=== PATIENT | female | born 1945 | race Caucasian/White ===

== ENCOUNTER 2016-11-03 13:09 | Emergency (ER) | payer MEDICARE ==
[2016-11-03] MEDS ORDERED: Ondansetron ODT 4 MG TAB ONE (13:32)
[2016-11-03 15:22] LABS: #Basophils 0.2 thou/uL (0.0-0.2); #Lymphocytes 1.2 thou/uL (1.20-3.40); #Neutrophils 3.4 thou/uL (1.40-6.50); %Basophils 2.6 % (0.0-1.0); %Eosinophils 0.4 % (0.0-10.0); %Lymphocytes 21.2 % (21.0-51.0); %Monocytes 17.9 % (0.0-10.0); Macrocytosis MARKED = >30 cells (100X) (0-5/hpf); Mean Platelet Volume 8.1 fL (7.4-10.4); Red Blood Cell (RBC) Count 3.92 mill/uL (4.20-5.40); White Blood Cell (WBC) Count 5.9 thou/uL (4.8-10.8)
[2016-11-03 15:23] LABS: ALT (SGPT) 12 U/L (0-55); AST (SGOT) 24 U/L (5-34); Alkaline Phosphatase 64 U/L (40-150); Anion Gap 16 mmol/L (10-20); BUN (Urea Nitrogen) 17 mg/dL (9.8-20.1); Bilirubin, Total 0.5 mg/dL (0.2-1.2); Calc. Creatinine Clearance 0 mL/min (70-130); Calcium 8.9 mg/dL (7.8-10.44); Carbon Dioxide 15 mmol/L (23-31); Chloride 97 mmol/L (98-107); Estimated GFR-MDRD 81; Protein, Total 6.5 g/dL (5.8-8.1)
[2016-11-03] MEDS ORDERED: Fentanyl 100 MCG/2 ML VIAL ONE (15:23)
--- NOTE | 2016-11-03 17:24 | ERRECORD ---
[facility]13:13 EPIE) MERGE: Ambulance Tue Nov 03, 2016 13:02. HPI NAUSEA/VOMITING/DIARRHEA (15:35 MPUR) CHIEF COMPLAINT: Patient presents for evaluation of nausea, Patient presents for evaluation of vomiting, Patient presents for evaluation of dehydration. HISTORIAN: History provided by patient, 71 yo who had a pacemaker placer 1 week ago. Since then has had N& V with persistence. NO primary. Evidently was on Hospice in the past but is no longer. LOCATION FEMALE: Symptoms are generalized. TIME COURSE: Gradual onset of symptoms, Symptoms are worsening. ASSOCIATED WITH FEMALE: No associated constipation, No associated diarrhea, No associated weight change. EXACERBATED BY: Patient's condition exacerbated by nothing. RELIEVED BY: Patient's condition relieved by nothing. ROS (15:39 MPUR) CONSTITUTIONAL: Historian denies chills, Historian denies fever, Historian denies malaise, Historian denies weakness. CO chronic pain. EYES: Historian denies eye redness, Historian denies eye discharge. ENT: Historian denies epistaxis, Historian denies otalgia, Historian denies rhinorrhea, Historian denies sore throat. CARDIOVASCULAR: Historian denies chest pain except for pain around her new pacemaker site. RESPIRATORY: Historian denies cough, Historian denies shortness of breath. GI: Historian denies abdominal pain, Historian denies diarrhea with last BM thin am, normal,. GENITOURINARY FEMALE: Historian denies dysuria, Historian denies frequency, Historian denies hematuria, Historian denies urgency,. MUSCULOSKELETAL: Historian denies neck pain. Has chronic back pain. SKIN: Historian denies cellulitis, Historian denies rash. NEUROLOGIC: Historian denies dizziness, Historian denies headache. ENDOCRINE: Historian denies polydipsia, Historian denies polyuria. PAST MEDICAL HISTORY (13:15 EPIE) MEDICAL HISTORY: Flu vaccine not up to date, Pneumococcal vaccine not up to date, Past medical history includes gastrointestinal disease, diverticulitis, Past medical history includes history of hypertension. Notes: seizures, , Past medical history includes pulmonary disease, chronic obstructive pulmonary &a-1R&a+25V*p+0X*[id number]*c202B*c15G*c2P*p-0X&a-25V&a+1R Name: Nelli Monet : 1945 F71 MedRec: [id number] AcctNum: [id number] Prepared: WedNov 03, 2016 18:40 by Interface Page 1 of 3 pMD [facility] EMERGENCY RECORD disease. CHRONIC BACK PAIN, recently dx with cardiomyopathy. FEMALE SURGICAL HISTORY: bilateral cataract. bilateral trigger fingers, Surgical history of section, Surgical history of hysterectomy. Surgical history of section, Surgical history of hysterectomy, Surgical history of orthopedic surgery, neck. PSYCHIATRIC HISTORY: Psychiatric history includes, anxiety. SOCIAL HISTORY: Patient denies alcohol use, Patient denies drug use, Patient currently uses tobacco, smokes cigarettes, Patient smokes ocassionally. KNOWN ALLERGIES azithromycin (Unconfirmed) Penicillins CURRENT MEDICATIONS No recorded medications VITAL SIGNS VITAL SIGNS: BP: 175/75, Pulse: 61, Resp: 20, Pain: 6, O2 sat: 96 on Room Air, Time: 11/03/2016 13:13. (13:13 EPIE) BP: 142/66, Pulse: 60, Resp: 20, Temp: 97.5 (Oral), Pain: 6, O2 sat: 98 on Room Air, Time: 11/03/2016 15:00. (15:00 JPAR) BP: 174/85, Pulse: 60, Resp: 19, Pain: 7, O2 sat: 98, Time: 11/03/2016 15:15. (15:15 JPAR) BP: 151/62, Pulse: 60, Resp: 16, Pain: 4, O2 sat: 97, Time: 11/03/2016 16:08. (16:08 JPAR) BP: 149/56, Pulse: 60, Resp: 16 (Non-Labored), O2 sat: 97 on Room Air, Time: 11/03/2016 16:30. (16:30 EPIE) BP: 130/50, Pulse: 60, Resp: 17, Pain: 2, O2 sat: 97, Time: 11/03/2016 17:07. (17:07 JPAR) PHYSICAL EXAM (15:38 MPUR) CONSTITUTIONAL: Vital signs reviewed, Patient alert and oriented to person, place and time. Cachetic. HEAD: Head exam included findings of head atraumatic, normocephalic. EYES: Pupils equally round and reactive to light, Extraocular muscles intact, Conjunctiva normal. ENT: Ear exam normal, Nose exam normal, Pharynx exam normal. NECK: Neck exam included findings of normal range of motion, Trachea midline, no jugular venous distention. RESPIRATORY CHEST: Respiratory exam included findings of no respiratory distress, Breath sounds clear, No wheezing, No rales, No rhonchi. CARDIOVASCULAR: Cardiovascular exam included findings of heart rate regular rate and rhythm, Heart sounds normal, normal S1, normal S2, no murmurs. &a-1R&a+25V*p+0X*a7322O*c202B*c15G*c2P*p-0X&a-25V&a+1R Name: Nelli Monet : 1945 F71 MedRec: [id number] AcctNum: [id number] Prepared: WedNov 03, 2016 18:40 by Interface Page 2 of 3 pMD [facility] EMERGENCY RECORD ABDOMEN FEMALE: Abdominal exam included findings of abdomen nontender, Bowel sounds normal, Liver normal, Spleen normal, no distension, no mass, no pulsatile masses, no peritoneal signs. BACK: Back exam normal. dark skin on back from heatng pad. UPPER EXTREMITY: Motor strength normal, Sensation intact, Radial pulse normal. LOWER EXTREMITY: Lower extremity exam included findings of inspection normal, Motor strength normal, Posterior tibial pulse normal. NEURO: Neuro exam findings include patient oriented to person, place and time, Speech normal. SKIN: Skin exam included findings of skin warm, dry. MEDICATION ADMINISTRATION SUMMARY Drug Name: fentaNYL (PF) injection, Dose Ordered: 50 mcg, Route: IV Push, Status: Given, Time: 15:24 11/03/2016, Drug Name: *sodium chloride 0.9 % intravenous, Dose Ordered: 500 mL, Route: IV Fluid Infusion, Status: Given, Time: 14:31 11/03/2016, Drug Name: Zofran ODT, Dose Ordered: 4 mg, Route: Sublingual, Status: Given, Time: 13:35 11/03/2016, *Additional information available in notes, Detailed record available in Medication Service section. DOCTOR NOTES TEXT: Elderly female with N & V, hyponatremia, recent pacemaker insertion. Will admit for correction. (15:32 MPUR) D/W: Discussed this case with Dr. Mcclain, the [employer] special education teacher physician, discussed and need for transfer. (15:53 MPUR) PROBLEM LIST No recorded problems DIAGNOSIS (15:34 MPUR) FINAL: PRIMARY: Nausea and vomiting, ADDITIONAL: Hyponatremia. PRESCRIPTION No recorded prescriptions DISPOSITION PATIENT: Disposition Type: Transfer, Disposition: Transfer to [facility]. (15:34 MPUR) Patient left the department. (17:18 JPAR) Fuller: LEBRON=AUSTIN Joel, Leesa BROWNE=AUSTIN Alvarez, Josh MPUR=MD Maame, Lc &a-1R&a+25V*p+0X*l7141Y*c202B*c15G*c2P*p-0X&a-25V&a+1R Name: Nelli Monet : 1945 F71 MedRec: [id number] AcctNum: [id number] Prepared: Cristopher Nov 03, 2016 18:40 by Interface Page 3 of 3 pMD [facility]TDD
--- NOTE | 2016-11-03 17:30 | PICIS ---
[facility] EMERGENCY RECORD ADMIN MERGE: Ambulance WedNov 03, 2016 13:02. (13:13 EPIE) TRIAGE (WedNov 03, 2016 13:12 EPIE) TRIAGE NOTES: Pt reports nausea and vomiting starting after pacemaker was placed. Pt has no appetite at this time. (WedNov 03, 2016 13:12 EPIE) PATIENT: NAME: Nelli Monet, AGE: 71, GENDER: female, : Wed1945, TIME OF GREET: WedNov 03, 2016 13:10, PREFERRED LANGUAGE: Angolan, ETHNICITY: Not or , ECODE BILLING MAP: [facility], SSN: [id number], Zip Code: [address], KG WEIGHT: 46.27, PHONE: , , , PERSON ID: [id number], PCP: none. (WedNov 03, 2016 13:12 EPIE) COMPLAINT: N/V Pacemaker placed 10/27/16. (WedNov 03, 2016 13:12 EPIE) ADMISSION: URGENCY: 3 Urgent, ADMISSION SOURCE: Home, TRANSPORT: AMBULANCE - [facility], BED: TRIAGE. (WedNov 03, 2016 13:12 EPIE) TRIAGE SCREENING: Patient denies suicidal ideation, Patient denies presence of domestic violence. (13:15 EPIE) TREATMENTS IN PROGRESS: Treatments given Prehospital: 4mg zofran IM SAP SD ANALYST. (13:15 EPIE) PROVIDERS: TRIAGE NURSE: Leesa Joel RN. (WedNov 03, 2016 13:12 EPIE) VITAL SIGNS: BP 175/75, Pulse 61, Resp 20, Pain 6, O2 Sat 96, on Room Air, Time 11/03/2016 13:13. (13:13 EPIE) PREVIOUS VISIT ALLERGIES: Penicillins. (WedNov 03, 2016 13:12 EPIE) Penicillins. (13:15 EPIE) KNOWN ALLERGIES azithromycin (Unconfirmed) Penicillins CURRENT MEDICATIONS No recorded medications VITAL SIGNS VITAL SIGNS: BP: 175/75, Pulse: 61, Resp: 20, Pain: 6, O2 sat: 96 on Room Air, Time: 11/03/2016 13:13. (13:13 EPIE) BP: 142/66, Pulse: 60, Resp: 20, Temp: 97.5 (Oral), Pain: 6, O2 sat: 98 on Room Air, Time: 11/03/2016 15:00. (15:00 JPAR) BP: 174/85, Pulse: 60, Resp: 19, Pain: 7, O2 sat: 98, Time: 11/03/2016 15:15. (15:15 JPAR) BP: 151/62, Pulse: 60, Resp: 16, Pain: 4, O2 sat: 97, Time: 11/03/2016 16:08. (16:08 JPAR) BP: 149/56, Pulse: 60, Resp: 16 (Non-Labored), O2 sat: 97 on Room Air, Time: 11/03/2016 16:30. (16:30 EPIE) BP: 130/50, Pulse: 60, Resp: 17, Pain: 2, O2 sat: 97, Time: 11/03/2016 17:07. (17:07 JPAR) &a-1R&a+25V*p+0X*g8201X*c202B*c15G*c2P*p-0X&a-25V&a+1R Name: Nelli Monet : 1945 F71 MedRec: [id number] AcctNum: [id number] Prepared: aashish Nov 03, 2016 18:46 by Interface Page 1 of 9 pMD [facility] EMERGENCY RECORD NURSING ASSESSMENT: ABDOMEN (13:20 JPAR) CONSTITUTIONAL: Patient arrives, via Emergency Medical Services, Gait steady, History obtained from patient, Patient appears, uncomfortable, Patient cooperative, Patient alert, Oriented to person, place and time, Skin warm, Skin dry, Skin normal in color, Patient complains of Nausea 3 full days since wednesday. PAIN: aching pain, cramping pain, to the epigastric region, Onset of pain 3 days, on a scale 0-10 patient rates pain as 6. ABDOMEN: Abdomen assessment findings include abdomen symmetrical, no discolorations, no ecchymosis, no hernia, no incision(s), Lesions, no scars, no striae, no hemorrhoids, Abdomen soft, non-tender, no pulsatile mass, no dullness with percussion, no resonance with percussion, Bowel sounds, hyperactive, Associated with nausea, Associated with vomiting, history of vomiting, Number of times: 8-10 times a day, vomiting clear fluid, no associated diarrhea, no associated constipation, no associated weight change, no associated appetite change. GENITOURINARY FEMALE: no associated urinary complaints. SAFETY: Side rails up, Cart/Stretcher in lowest position, Family at bedside, Call light within reach, Hospital ID band on. NURSING PROCEDURE: EKG CHART (13:34 EPIE) PATIENT IDENTIFIER: Patient actively involved in identification process, Patient's identity verified by patient stating name, Patient's identity verified by patient stating date, Patient's identity verified by hospital ID bracelet, Patient's identity verified by family member. EKG: EKG indicated for Intractable Vomiting 4 days, 12 lead EKG performed on the left chest, first EKG. FOLLOW-UP: After procedure, EKG for interpretation given to Dr. Isabel. SAFETY: Side rails up, Cart/Stretcher in lowest position, Call light within reach, Hospital ID band on. NURSING PROCEDURE: IV (14:45 EPIE) PATIENT IDENITIFIER: Patient actively involved in identification process, Patient's identity verified by patient stating name, Patient's identity verified by hospital ID bracelet. IV SITE 1: IV established, to the right forearm, using a 22 gauge catheter, in three attempts, IV site prepped with chloroprep, Saline lock established, Flushed with normal saline (mls): 10, Notes: IV started by Rita RN 2 attempts by Leesa AVILA. FOLLOW-UP SITE 1: After procedure, no drainage at IV site, After procedure, no swelling at IV site, After procedure, no redness at IV site. &a-1R&a+25V*p+0X*o3049O*c202B*c15G*c2P*p-0X&a-25V&a+1R Name: Nelli Monet : 1945 F71 MedRec: [id number] AcctNum: [id number] Prepared: WedNov 03, 2016 18:46 by Interface Page [address] [facility] EMERGENCY RECORD NURSING PROCEDURE: TRANSFER (17:17 JPAR) TRANSFER: Reason for transfer need for specialized care, Diagnosis: Hyponatremia, [place], Accepting institution: [facility], Accepting physician: Sarahi, Referring physician: Maame, Transported by urgent ambulance, accompanied by emergency medical services personnel, Report called to receiving facility, Lory, Provided opportunity to answer questions, Summary of Care printed, Copy of patient record prepared for receiving facility, Copy of diagnostic studies, Patient consent for transfer signed, Family member contacted, Son- Navneet via Phone. BELONGINGS: Belongings and valuables with patient at time of discharge include:, Belongings remain with patient, Valuables remain with patient. EQUIPMENT WITH PATIENT: Equipment with patient at time of transfer cardiac cath lab manager, Saline lock intact and patent at time of transfer. SAFETY: Side rails up, Cart/Stretcher in lowest position, Call light within reach, Hospital ID band on. ORDER DETAILS Order Name: Beta-Hydroxybutyrate (Ketone), Status: Canceled, Time: 15:35 11/03/2016, User: System, - Ordered for: MD Isabel Marcus, - Entered by: MD Isabel Marcus - Tue Nov 03, 2016 14:49, - Quantity: 1, Order Name: Cardiac Profile w/CKMB & Troponin - I, Status: Canceled, Time: 15:35 11/03/2016, User: System, - Ordered for: MD Isabel Marcus, - Entered by: MD Isabel Marcus - Tue Nov 03, 2016 14:49, - Quantity: 1, Order Name: CBC with Differential, Status: Active, Time: 13:22 11/03/2016, User: KASIE, - Ordered for: MD Isabel Marcus, - Entered by: MD Isabel Marcus - Tue Nov 03, 2016 13:22, - Quantity: 1, Order Name: CK (CPK), Status: Canceled, Time: 15:35 11/03/2016, User: System, - Ordered for: MD Isabel Marcus, - Entered by: MD Isabel Marcus - Tue Nov 03, 2016 14:49, - Quantity: 1, Order Name: Comprehensive Metabolic Panel, Status: Active, Time: 13:22 11/03/2016, User: KASIE, - Ordered for: MD Isabel Marcus, - Entered by: MD Isabel Marcus - Tue Nov 03, 2016 13:22, - Quantity: 1, Order Name: EKG 12 Lead in Emergency Room, Status: Active, Time: 13:22 11/03/2016, User: KASIE, - Ordered for: MD Isabel Marcus, - Entered by: MD Isabel Marcus - Tue Nov 03, 2016 13:22, &a-1R&a+25V*p+0X*e5298L*c202B*c15G*c2P*p-0X&a-25V&a+1R Name: Nelli Monet : 1945 F71 MedRec: [id number] AcctNum: [id number] Prepared: WedNov 03, 2016 18:46 by Interface Page 3 of 9 D [facility] EMERGENCY RECORD - Quantity: 1, Order Name: SALINE LOCK, Status: Done, Time: 15:07 11/03/2016, User: LEBRON, - Ordered for: MD Isabel Marcus, - Entered by: MD Isabel Marcus - Tue Nov 03, 2016 14:49, - Quantity: 1, Order Name: Urinalysis with Microscopic, Status: Active, Time: 14:49 11/03/2016, User: KASIE, - Ordered for: MD Isabel Marcus, - Entered by: MD Isabel Marcus - Tue Nov 03, 2016 14:49, - Quantity: 1. MEDICATION ADMINISTRATION SUMMARY Drug Name: fentaNYL (PF) injection, Dose Ordered: 50 mcg, Route: IV Push, Status: Given, Time: 15:24 11/03/2016, Drug Name: *sodium chloride 0.9 % intravenous, Dose Ordered: 500 mL, Route: IV Fluid Infusion, Status: Given, Time: 14:31 11/03/2016, Drug Name: Zofran ODT, Dose Ordered: 4 mg, Route: Sublingual, Status: Given, Time: 13:35 11/03/2016, *Additional information available in notes, Detailed record available in Medication Service section. MEDICATION SERVICE fentaNYL (PF) injection: Order: fentaNYL (PF) injection (fentanyl citrate/preservative free) - Dose: 50 mcg : IV Push Ordered by: Lc Isabel MD Entered by: Lc Isabel MD WedNov 03, 2016 15:19 , Acknowledged by: Josh Alvarez RN WedNov 03, 2016 15:23 Documented as given by: Josh Alvarez RN WedNov 03, 2016 15:24 Patient, Medication, Dose, Route and Time verified prior to administration. IV SITE #1 IVP, initial medication, Slowly, Awake and alert- acceptable, Connections checked prior to administration, Line traced prior to administration, Catheter placement confirmed via flush prior to administration, IV site without signs or symptoms of infiltration during medication administration, No swelling during administration, No drainage during administration, IV flushed after administration, Correct patient, time, route, dose and medication confirmed prior to administration, Patient advised of actions and side-effects prior to administration, Allergies confirmed and medications reviewed prior to administration, Patient in position of comfort, Side rails up, Cart in lowest position, Call light in reach. sodium chloride 0.9 % intravenous: Order: sodium chloride 0.9 % intravenous (0.9 % sodium chloride) - Dose: 500 mL : IV Fluid Infusion Notes: bolus Ordered by: Lc Isabel MD Entered by: Lc Isabel MD WedNov 03, 2016 14:55 , Acknowledged by: Josh Alvarez RN WedNov 03, 2016 15:16 &a-1R&a+25V*p+0X*r6355F*c202B*c15G*c2P*p-0X&a-25V&a+1R Name: Nelli Monet : 1945 F71 MedRec: [id number] AcctNum: [id number] Prepared: WedNov 03, 2016 18:46 by Interface Page 4 of 9 pMD [facility] EMERGENCY RECORD Documented as given by: Josh Alvarez RN WedNov 03, 2016 14:31 Patient, Medication, Dose, Route and Time verified prior to administration. IV SITE #1 IV fluids established for hydration, IV SITE #1 into right forearm, IV SITE #1 1st bag hung, amount 500ml hung, IV SITE #1 bolus of 500 ml established, via primary tubing, Awake and alert- acceptable, Catheter placement confirmed via flush prior to administration, IV site without signs or symptoms of infiltration during medication administration, No swelling during administration, No drainage during administration, IV flushed after administration, Correct patient, time, route, dose and medication confirmed prior to administration, Patient advised of actions and side-effects prior to administration, Allergies confirmed and medications reviewed prior to administration, Administered by Rita Tucker RN, Patient in position of comfort, Side rails up, Cart in lowest position, Family at bedside, Call light in reach. : Follow Up : _IV SITE #1:_, IV fluid infusion discontinued, on WedNov 03, 2016 15:45, Total fluid hydration time IV site 1 1 hour, 15 minutes, ., Total amount infused: 500ml, IV Line flushed after administration. (15:45 EPIE) Zofran ODT: Order: Zofran ODT (ondansetron) - Dose: 4 mg : Sublingual Ordered by: Lc Isabel MD Entered by: Lc Isabel MD WedNov 03, 2016 13:37 Documented as given by: Leesa Joel RN WedNov 03, 2016 13:35 Patient, Medication, Dose, Route and Time verified prior to administration. Patient appears Awake and alert- acceptable, Correct patient, time, route, dose and medication confirmed prior to administration, Patient advised of actions and side-effects prior to administration, Allergies confirmed and medications reviewed prior to administration, Administered by Leesa AVILA, Patient in position of comfort, Side rails up, Cart in lowest position, Family at bedside, Call light in reach. HPI NAUSEA/VOMITING/DIARRHEA (15:35 MPUR) CHIEF COMPLAINT: Patient presents for evaluation of nausea, Patient presents for evaluation of vomiting, Patient presents for evaluation of dehydration. HISTORIAN: History provided by patient, 71 yo who had a pacemaker placer 1 week ago. Since then has had N& V with persistence. NO primary. Evidently was on Hospice in the past but is no longer. LOCATION FEMALE: Symptoms are generalized. TIME COURSE: Gradual onset of symptoms, Symptoms are worsening. ASSOCIATED WITH FEMALE: No associated constipation, No associated diarrhea, No associated weight change. EXACERBATED BY: Patient's condition exacerbated by nothing. RELIEVED BY: Patient's condition relieved by nothing. ROS (15:39 MPUR) &a-1R&a+25V*p+0X*e8571G*c202B*c15G*c2P*p-0X&a-25V&a+1R Name: Nelli Monet : 1945 F71 MedRec: [id number] AcctNum: [id number] Prepared: Cristopher Nov 03, 2016 18:46 by Interface Page 5 of 9 pMD [facility] EMERGENCY RECORD CONSTITUTIONAL: Historian denies chills, Historian denies fever, Historian denies malaise, Historian denies weakness. CO chronic pain. EYES: Historian denies eye redness, Historian denies eye discharge. ENT: Historian denies epistaxis, Historian denies otalgia, Historian denies rhinorrhea, Historian denies sore throat. CARDIOVASCULAR: Historian denies chest pain except for pain around her new pacemaker site. RESPIRATORY: Historian denies cough, Historian denies shortness of breath. GI: Historian denies abdominal pain, Historian denies diarrhea with last BM thin am, normal,. GENITOURINARY FEMALE: Historian denies dysuria, Historian denies frequency, Historian denies hematuria, Historian denies urgency,. MUSCULOSKELETAL: Historian denies neck pain. Has chronic back pain. SKIN: Historian denies cellulitis, Historian denies rash. NEUROLOGIC: Historian denies dizziness, Historian denies headache. ENDOCRINE: Historian denies polydipsia, Historian denies polyuria. PAST MEDICAL HISTORY (13:15 EPIE) MEDICAL HISTORY: Flu vaccine not up to date, Pneumococcal vaccine not up to date, Past medical history includes gastrointestinal disease, diverticulitis, Past medical history includes history of hypertension. Notes: seizures, , Past medical history includes pulmonary disease, chronic obstructive pulmonary disease. CHRONIC BACK PAIN, recently dx with cardiomyopathy. FEMALE SURGICAL HISTORY: bilateral cataract. bilateral trigger fingers, Surgical history of section, Surgical history of hysterectomy. Surgical history of section, Surgical history of hysterectomy, Surgical history of orthopedic surgery, neck. PSYCHIATRIC HISTORY: Psychiatric history includes, anxiety. SOCIAL HISTORY: Patient denies alcohol use, Patient denies drug use, Patient currently uses tobacco, smokes cigarettes, Patient smokes ocassionally. PHYSICAL EXAM (15:38 MPUR) CONSTITUTIONAL: Vital signs reviewed, Patient alert and oriented to person, place and time. Cachetic. HEAD: Head exam included findings of head atraumatic, normocephalic. EYES: Pupils equally round and reactive to light, Extraocular muscles intact, Conjunctiva normal. &a-1R&a+25V*p+0X*r9612I*c202B*c15G*c2P*p-0X&a-25V&a+1R Name: Nelli Monet : 1945 F71 MedRec: [id number] AcctNum: [id number] Prepared: WedNov 03, 2016 18:46 by Interface Page 6 of 9 pMD [facility] EMERGENCY RECORD ENT: Ear exam normal, Nose exam normal, Pharynx exam normal. NECK: Neck exam included findings of normal range of motion, Trachea midline, no jugular venous distention. RESPIRATORY CHEST: Respiratory exam included findings of no respiratory distress, Breath sounds clear, No wheezing, No rales, No rhonchi. CARDIOVASCULAR: Cardiovascular exam included findings of heart rate regular rate and rhythm, Heart sounds normal, normal S1, normal S2, no murmurs. ABDOMEN FEMALE: Abdominal exam included findings of abdomen nontender, Bowel sounds normal, Liver normal, Spleen normal, no distension, no mass, no pulsatile masses, no peritoneal signs. BACK: Back exam normal. dark skin on back from heatng pad. UPPER EXTREMITY: Motor strength normal, Sensation intact, Radial pulse normal. LOWER EXTREMITY: Lower extremity exam included findings of inspection normal, Motor strength normal, Posterior tibial pulse normal. NEURO: Neuro exam findings include patient oriented to person, place and time, Speech normal. SKIN: Skin exam included findings of skin warm, dry. EVENTS TRANSFER: Triage to Emergency Triage. (WedNov 03, 2016 13:12 EPIE) Emergency Triage to Emergency Room -03. (13:13 EPIE) Removed from Emergency Emergency Room -03. (17:18 JPAR) DOCTOR NOTES TEXT: Elderly female with N & V, hyponatremia, recent pacemaker insertion. Will admit for correction. (15:32 MPUR) D/W: Discussed this case with Dr. Mcclain, the application consultant physician, discussed and need for transfer. (15:53 MPUR) PROBLEM LIST No recorded problems DIAGNOSIS (15:34 MPUR) FINAL: PRIMARY: Nausea and vomiting, ADDITIONAL: Hyponatremia. DISPOSITION PATIENT: Disposition Type: Transfer, Disposition: Transfer to [facility]. (15:34 MPUR) Patient left the department. (17:18 JPAR) PRESCRIPTION No recorded prescriptions &a-1R&a+25V*p+0X*v3702X*c202B*c15G*c2P*p-0X&a-25V&a+1R Name: Nelli Monet : 1945 F71 MedRec: [id number] AcctNum: [id number] Prepared: WedNov 03, 2016 18:46 by Interface Page 7 of 9 pMD [facility] EMERGENCY RECORD IMAGING *MEMORANDUM OF TRANSFER: Image captured from scanner. (17:04 JPAR) CONSENTS: Image captured from scanner. (17:05 JPAR) *SUPPLY CHARGE SHEET: Image captured from scanner. (17:55 JPAR) TRANSFER WORKSHEET: Image captured from scanner. (17:56 JPAR) *EKG: Image captured from scanner. (17:57 JPAR) ADMIN DIGITAL SIGNATURE: AUSTIN Alvarez, Josh. (17:18 JPAR) MD Maame, Lc. (18:33 MPUR) RESULTS (15:27 JPAR) LABORATORY: CBC with Differential Collection DT: WedNov 03, 2016 15:05, White Blood Cell (WBC) Count 5.9 thou/uL, Range (4.8-10.8), *Red Blood Cell (RBC) Count 3.92 - L mill/uL, Range (4.20-5.40), Hemoglobin 13.3 g/dL, Range (12.0-16.0), Hematocrit 44.0 %, Range (36.0-47.0), *Mean Corpuscular Volume 112.0 - H fl, Range (81.0-99.0), *Mean Corpuscular Hemoglobin 33.9 - H pg, Range (27.0-31.0), *Mean Corpuscular HGB CONC 30.2 - L g/dL, Range (32.0-36.0), *RBC Distribution Width 15.2 - H %, Range (11.5-14.5), Platelet Count 214 thou/uL, Range (130-400), Mean Platelet Volume 8.1 fL, Range (7.4-10.4), %Neutrophils 58.0 %, Range (42.0-75.0), %Lymphocytes 21.2 %, Range (21.0-51.0), *%Monocytes 17.9 - H %, Range (0.0-10.0), %Eosinophils 0.4 %, Range (0.0-10.0), *%Basophils 2.6 - H %, Range (0.0-1.0), #Neutrophils 3.4 thou/uL, Range (1.40-6.50), #Lymphocytes 1.2 thou/uL, Range (1.20-3.40), *#Monocytes 1.0 - H thou/uL, Range (0.11-0.59), #Eosinphils 0.0 thou/uL, Range (0.0-0.7), #Basophils 0.2 thou/uL, Range (0.0-0.2), Macrocytosis MARKED = >30 cells (100X), Range (0-5/hpf). Comprehensive Metabolic Panel Collection DT: WedNov 03, 2016 15:05, *Sodium 123 - L mmol/L, Range (136-145), Potassium 4.9 mmol/L, Range (3.5-5.1), *Chloride 97 - L mmol/L, Range (98-107), *Carbon Dioxide 15 - L mmol/L, Range (23-31), Anion Gap 16 mmol/L, Range (10-20), BUN (Urea Nitrogen) 17 mg/dL, Range (9.8-20.1), Creatinine 0.71 mg/dL, Range (0.6-1.1), Estimated GFR-MDRD 81 , Reference Range for Estimated GFR: Greater than 90, mL/min/1.73 m2 &a-1R&a+25V*p+0X*k5006U*c202B*c15G*c2P*p-0X&a-25V&a+1R Name: Nelli Monet : 1945 F71 MedRec: [id number] AcctNum: [id number] Prepared: WedNov 03, 2016 18:46 by Interface Page 8 of 9 pMD [facility] EMERGENCY RECORD NOTE: The MDRD equation has not been validated for use, with the elderly (over 70 years of age), women, patients with, serious comorbid condition or persons with extremes of body size, muscle, mass, or nutritional status. , Glucose 96 mg/dL, Range (83-110), Calcium 8.9 mg/dL, Range (7.8-10.44), Bilirubin, Total 0.5 mg/dL, Range (0.2-1.2), Protein, Total 6.5 g/dL, Range (5.8-8.1), NOTE: Plasma values are generally 0.3 to 0.5 g/dL higher than serum values, due to the presence of fibrinogen. , Albumin 3.5 g/dL, Range (3.4-4.8), Globulin 3.0 g/dL, Range (2.4-3.5), Alb/Glob Ratio 1.2 g/dL, Range (1.2-2.2), Alkaline Phosphatase 64 U/L, Range (40-150), AST (SGOT) 24 U/L, Range (5-34), ALT (SGPT) 12 U/L, Range (0-55). Fuller: LEBRON=AUSTIN Joel, Leesa BROWNE=AUSTIN Alvarez, Josh MPUR=MD Maame, Lc &a-1R&a+25V*p+0X*o5548I*c202B*c15G*c2P*p-0X&a-25V&a+1R Name: Nelli Monet : 1945 F71 MedRec: [id number] AcctNum: [id number] Prepared: Cristopher Nov 03, 2016 18:46 by Interface Page 9 of 9 pMD MTDD
== END 2016-11-03 17:17 | disposition short-term general hospital (02) ==
LOC: NAV ERS 13:09
DX: E87.1 Hypo-osmolality and hyponatremia (principal); I10 Essential (primary) hypertension; J44.9 Chronic obstructive pulmonary disease, unspecified; F41.9 Anxiety disorder, unspecified; F17.210 Nicotine dependence, cigarettes, uncomplicated
CPT/HCPCS: 80053; 85025; 93005; 96361; 96374; J3010; Q0162

== ENCOUNTER 2018-10-19 15:47 | Emergency (ER) | payer MEDICARE | END 2018-10-19 16:34 | disposition home or self-care (01) | LOC: NAV ERS 15:47 | DX: L02.512 Cutaneous abscess of left hand (principal); I48.91 Unspecified atrial fibrillation; I10 Essential (primary) hypertension; J44.9 Chronic obstructive pulmonary disease, unspecified; F41.9 Anxiety disorder, unspecified; F17.210 Nicotine dependence, cigarettes, uncomplicated; Z79.899 Other long term (current) drug therapy; Z79.82 Long term (current) use of aspirin | CPT/HCPCS: 87070; 87205; 99283 ==

== ENCOUNTER 2018-10-31 14:42 | Observation (INO) | payer MEDICARE ==
[2018-10-31 16:00] LABS: #Lymphocytes 1.3 thou/uL (1.20-3.40); #Monocytes 0.4 thou/uL (0.11-0.59); #Neutrophils 3.2 thou/uL (1.40-6.50); %Basophils 0.8 % (0.0-1.0); %Eosinophils 0.6 % (0.0-10.0); %Lymphocytes 26.1 % (21.0-51.0); %Monocytes 7.1 % (0.0-10.0); %Neutrophils 65.5 % (42.0-75.0); Hemoglobin 14.8 g/dL (12.0-16.0); Macrocytosis MODERATE=16-30 cells (100X) (0-5/hpf); Mean Corpuscular HGB CONC 30.6 g/dL (32.0-36.0); Mean Corpuscular Hemoglobin 36.4 pg (27.0-31.0); Mean Platelet Volume 6.8 fL (7.4-10.4); Platelet Count 299 thou/uL (130-400); RBC Distribution Width 15.7 % (11.5-14.5); Red Blood Cell (RBC) Count 4.05 mill/uL (4.20-5.40)
[2018-10-31] MEDS ORDERED: HYDROcodone/Acetaminophen 5/325 mg Tablet ONE (16:02)
[2018-10-31 16:18] LABS: ALT (SGPT) 22 U/L (8-55); AST (SGOT) 14 U/L (5-34); Alkaline Phosphatase 83 U/L (40-150); Anion Gap 18 mmol/L (10-20); BUN (Urea Nitrogen) 19 mg/dL (9.8-20.1); Bilirubin, Total 0.3 mg/dL (0.2-1.2); Calc. Creatinine Clearance 0 mL/min (70-130); Carbon Dioxide 15 mmol/L (23-31); Chloride 103 mmol/L (98-107); Estimated GFR-MDRD 79; Globulin 3.4 g/dL (2.4-3.5); Glucose 92 mg/dL (83-110); Lipase 6 U/L (8-78); Potassium 5.7 mmol/L (3.5-5.1); Protein, Total 7.4 g/dL (6.0-8.3); Sodium 130 mmol/L (136-145)
--- NOTE | 2018-10-31 16:27 | RAD ---
SINGLE VIEW CHEST: Date: 10/31/18 COMPARISON: 08/29/18. HISTORY: Fever and cough. FINDINGS: Single view of the chest shows a cardiomediastinal silhouette which is upper limits of normal in size . Pacemaker is unchanged in position. Increased interstitial lung markings and hyperexpansion of the lungs is likely secondary to COPD. Biapical pleural thickening is seen. There is no evidence of conso lidation, mass, or pleural effusion. IMPRESSION: No evidence of acute cardiopulmonary disease. POS: [facility]
[2018-10-31] MEDS ORDERED: Albuterol Sulfate 2.5 mg/0.5 ml Neb ONE (17:46)
[2018-10-31] MEDS ORDERED: Dextrose 50% Abboject 50 ML SYRINGE ONE ×2 (17:47→18:21)
[2018-10-31] MEDS ORDERED: Sodium Chloride 0.9% 1,000 ML ONE (17:48)
[2018-10-31] MEDS ORDERED: Insulin Regular 300 UNITS/3 ML VIAL ONE (17:49)
[2018-10-31] MEDS ORDERED: Fluorescein Opthalmic Strip ONE (18:44)
[2018-10-31] MEDS ORDERED: Proparacaine 0.5% Opth 15 ML BOT ONE (18:44)
[2018-10-31] MEDS ORDERED: Ondansetron PF 4 MG/2 ML Vial IVP PRN (21:22)
[2018-10-31] MEDS ORDERED: HYDROcodone/Acetaminophen 5/325 mg Tablet PO PRN ×2 (21:22)
[2018-10-31] MEDS ORDERED: Ondansetron ODT 4 MG TAB SL PRN (21:22)
[2018-10-31] MEDS ORDERED: Acetaminophen 325 MG TAB PO PRN ×2 (21:22→22:12)
[2018-10-31] MEDS ORDERED: tiZANidine HCl 4 MG TAB PO PRN (22:13)
[2018-10-31] MEDS ORDERED: Mometasone/Formoterol 60 PUFF AER INH SCH (22:30)
[2018-10-31] MEDS ORDERED: Apixaban 5 MG TAB PO SCH (22:30)
[2018-10-31] MEDS ORDERED: Carvedilol 25 MG TAB PO SCH (22:30)
[2018-10-31] MEDS ORDERED: Gabapentin 300 MG CAP PO SCH (22:30)
[2018-10-31] MEDS ORDERED: busPIRone HCl 5 MG TAB PO SCH (22:30)
[2018-10-31] MEDS: Lactated Ringer's 1,000 ML IV SCH (22:31)
[2018-10-31] MEDS: HYDROcodone/Acetaminophen 10/325 mg Tablet PO PRN (22:32)
[2018-11-01] MEDS ORDERED: Sodium Chloride 0.9% 20 ML ONE (02:52)
[2018-11-01] MEDS ORDERED: Sodium Chloride 0.9% 10 ML ONE (03:21)
[2018-11-01] MEDS: HYDROcodone/Acetaminophen 10/325 mg Tablet PO PRN ×2 (04:46→11:09)
[2018-11-01 05:06] VITALS: BMI 15.2
[2018-11-01] MEDS: Lactated Ringer's 1,000 ML IV SCH ×2 (05:48→08:47)
[2018-11-01 05:50] LABS: Anion Gap 13 mmol/L (10-20); BUN (Urea Nitrogen) 12 mg/dL (9.8-20.1); Calc. Creatinine Clearance 48 mL/min (70-130); Calcium 9.4 mg/dL (7.8-10.44); Carbon Dioxide 22 mmol/L (23-31); Chloride 105 mmol/L (98-107); Estimated GFR-MDRD Greater than 90; Glucose 69 mg/dL (83-110); Potassium 4.6 mmol/L (3.5-5.1); Sodium 135 mmol/L (136-145)
[2018-11-01] MEDS ORDERED: Mometasone/Formoterol 60 PUFF AER INH SCH (06:30)
[2018-11-01] MEDS ORDERED: Carvedilol 25 MG TAB PO SCH ×2 (08:00→21:00)
[2018-11-01] MEDS: Gabapentin 300 MG CAP PO SCH ×2 (08:34→14:46)
[2018-11-01] MEDS ORDERED: Lisinopril 20 MG TAB PO SCH (09:00)
[2018-11-01] MEDS ORDERED: Apixaban 5 MG TAB PO SCH ×2 (09:00→21:00)
[2018-11-01] MEDS ORDERED: busPIRone HCl 5 MG TAB PO SCH ×2 (09:00→21:00)
[2018-11-01] MEDS ORDERED: Amlodipine 10 MG TAB PO SCH (09:00)
[2018-11-01] MEDS ORDERED: Amiodarone 200 MG TAB PO SCH (09:00)
[2018-11-01] MEDS ORDERED: TIZANIDINE HCL 2 MG PO PRN (09:38)
[2018-11-01] MEDS ORDERED: HYDROcodone/Acetaminophen 10/325 mg Tablet PO PRN ×2 (09:38→09:39)
[2018-11-01] MEDS ORDERED: HYDROcodone/Acetaminophen 7.5/325 mg Tablet PO PRN ×2 (09:38→09:39)
[2018-11-01] MEDS ORDERED: Nitroglycerin 0.4 MG TAB (25 Tab Bottle) SL PRN (09:38)
[2018-11-01] MEDS ORDERED: Acetaminophen 325 MG TAB PO PRN (09:39)
[2018-11-01] MEDS ORDERED: Ondansetron ODT 4 MG TAB PO PRN (09:39)
[2018-11-01 13:29] VITALS: BP 118/57
[2018-11-01 13:31] VITALS: TEMP 96.1
--- NOTE | 2018-11-01 14:36 | SS ---
DATE OF ADMISSION: 10/31/2018 DATE OF DISCHARGE: 11/01/2018 PRIMARY CARE DOCTOR: Dr. Allan in [place]. HISTORY OF PRESENT ILLNESS: Ms. Monet is a very pleasant 73-year-old white female, who presented to the emergency room with nausea, vomiting, diarrhea, and dehydration. She also had some coughing. Apparently, it has been going on for the last couple of weeks. She got to where she was unable to keep anything down and she was brought in. She was seen in the emergency room by Dr. Estrada, felt to be somewhat dehydrated, but actually her labs were not that bad. He felt that she would do well if we could hydrate her up and get her vomiting under control. She was given a dose of Zofran and her vomiting had stopped. She was hydrated, and she feels much better today and has actually even eaten breakfast. She did have elevated potassium and it is back down to normal today. She states she feels wonderful and is ready to go home and I was able to convince her to stay until after she eats lunch to make sure that she keep her food down. She agreed to that, but states she wants to be discharged after lunch. She has no other complaints. PAST MEDICAL HISTORY: Positive for hypertension; seizures; pulmonary disease; COPD; chronic back pain; cardiomyopathy, followed by Dr. Her; and spontaneous pneumothorax. PAST SURGICAL HISTORY: Reveals she has had a history of carpal tunnel syndrome on the right wrist, hernia repair, right inguinal repair, bilateral cataract repair, bilateral trigger finger repair, , hysterectomy, and neck surgery. PSYCHIATRIC HISTORY: Positive for anxiety. SOCIAL HISTORY: The patient states she denies any alcohol, but she does smoke. She states she used to smoke two packs a day and has smoked for many, many years. She states she is down to 2 or 3 cigarettes a day, but she cannot quit. ALLERGIES: REVEALS SHE IS ALLERGIC TO ALPRAZOLAM, AZITHROMYCIN, DOXYCYCLINE, KETOROLAC, PENICILLIN, AND TRAMADOL. PRESENT MEDICATIONS: At home reveals she is on; 1. Pantoprazole 40 mg once a day. 2. Buspirone 5 mg b.i.d. 3. Lisinopril 20 mg once a day. 4. Gabapentin 600 mg three times a day. 5. Carvedilol 25 mg twice a day. 6. Eliquis 5 mg twice a day. 7. Amiodarone 200 mg once a day. 8. Aspirin 81 mg a day. 9. Symbicort 160/4.5 inhaler two puffs twice a day. 10. Zanaflex 4 mg p.r.n. 11. [place] 5 p.r.n. 12. Tramadol 50 p.r.n. REVIEW OF SYSTEMS: CONSTITUTIONAL: Reveals the patient states this morning she feels much better. She states she denies any fever, chills, or night sweats. HEENT: Reveals that she denies any eye pain or ear pain or hearing problems. CARDIOVASCULAR: She denies any chest pain, but she does have dyspnea on exertion when she exerts herself a lot. Denies syncope and denies any palpitations or racing or tachycardia. RESPIRATORY: She does have a cough and she does smoke, but she denies any wheezing or any respiratory problems. GI: She reports nausea, vomiting, diarrhea, and just unable to really keep anything down. Denies any constipation and denies any bloody stools. : Denies any urgency, frequency, dysuria, hematuria. Denies any vaginal bleeding or discharge. MUSCULOSKELETAL: She states she has rarely any significant arthralgias or myalgias. SKIN: The patient does admit to some sores on her left hand that she thought were initially ant bites and that blistered up and now are healing. NEUROLOGIC: She denies confusion, is oriented x3. She has no focal weaknesses. Denies headaches. PSYCHOLOGIC: She does have a history of anxiety. PHYSICAL EXAMINATION: GENERAL: This is a well-developed, well-nourished, thin white female, in no apparent distress at this time. HEENT: Reveals normocephalic, nontraumatic cranium. Pupils are equally round, reactive. Extraocular movements intact. Nose and throat are moist this morning. They were dry last night. NECK: Supple without masses, nodes, or bruits. CHEST: Clear to auscultation. Breath sounds are distant and somewhat shallow. She does have all the signs and symptoms of a barrel chest along with COPD. She does continue to smoke. ABDOMEN: Soft, nontender without organomegaly this morning. Normal bowel sounds are noted. The patient has not vomited since she has been here. : Deferred. EXTREMITIES: Reveal no clubbing, cyanosis, or edema. NEUROLOGIC: The patient is oriented x4. SKIN: Reveals healing ulcers from probable ant bites on her left hand. PSYCHIATRIC: The patient is oriented to person, place, and time and is minimally anxious. ASSESSMENT: 1. Some type of GI gastritis or gastroenteritis. Most likely viral along with dehydration. 2. History of hypertension. 3. History of hypercholesterolemia. 4. Hyperkalemia. 5. History of anxiety problem. 6. History of gastroesophageal reflux disease. 7. History of atrial fibrillation, which is intermittent. 8. History of chronic bronchitis or chronic obstructive pulmonary disease. 9. Pain management. PLAN: The patient is doing very well. We will continue her stay at this time, and if she does well and tolerates her lunch, then we will discharge her at about 2. Job ID: [id number]
[2018-11-01] MEDS ORDERED: Non-Formulary Item 1 EACH (Gabapentin [Gabapentin] 600 MG) PO SCH (15:00)
[2018-11-01] MEDS ORDERED: Non-Formulary Item 1 EACH (Budesonide-Formoterol [Symbicort 160-4.5] 2 PUFF) INH SCH (21:00)
[2018-11-02] MEDS ORDERED: Lisinopril 20 MG TAB PO SCH (09:00)
[2018-11-02] MEDS ORDERED: Aspirin 81 mg Enteric Coated Tablet PO SCH (09:00)
[2018-11-02] MEDS ORDERED: Amlodipine 10 MG TAB PO SCH (09:00)
[2018-11-02] MEDS ORDERED: Amiodarone 200 MG TAB PO SCH (09:00)
== END 2018-11-01 15:00 | disposition home or self-care (01) ==
LOC: NAV ERS 14:42 → NAV ACUTE 20:49
PROVIDERS: ADMIT Family Medicine; ATTEND Family Medicine
DX: E86.0 Dehydration (principal); E87.5 Hyperkalemia; I10 Essential (primary) hypertension; J44.9 Chronic obstructive pulmonary disease, unspecified; G89.29 Other chronic pain; M54.9 Dorsalgia, unspecified; I42.9 Cardiomyopathy, unspecified; F41.9 Anxiety disorder, unspecified; F17.210 Nicotine dependence, cigarettes, uncomplicated; E78.00 Pure hypercholesterolemia, unspecified; K21.9 Gastro-esophageal reflux disease without esophagitis; I48.91 Unspecified atrial fibrillation; Z79.01 Long term (current) use of anticoagulants; Z79.82 Long term (current) use of aspirin; Z79.899 Other long term (current) drug therapy; Z88.0 Allergy status to penicillin; Z88.1 Allergy status to other antibiotic agents; Z88.5 Allergy status to narcotic agent; Z88.8 Allergy status to other drugs, medicaments and biological substances
CPT/HCPCS: 36415; 71045; 80048; 80053; 83690; 84484; 85025; 93005; 94640; 96361; 96374; 96375; G0378; J1815; J2405; J7050; J7611; J7620

== ENCOUNTER 2018-12-21 18:33 | Inpatient (IN) | payer MEDICARE ==
[2018-12-21 18:38] VITALS: BMI 16.5
[2018-12-21] MEDS ORDERED: Metoclopramide HCl 10 MG TAB PO PRN (21:08)
[2018-12-21] MEDS ORDERED: Calcium Carbonate 500 MG ChewTAB PO PRN (21:08)
[2018-12-21] MEDS ORDERED: Nitroglycerin 0.4 MG TAB (25 Tab Bottle) SL SCH (21:15)
[2018-12-21] MEDS ORDERED: fentaNYL 50 mcg/hour Patch TD SCH (21:15)
[2018-12-21] MEDS ORDERED: Eucerin (Mineral Oil/Petrolatum,White) 30 gm Jar TOP PRN (21:16)
[2018-12-21] MEDS ORDERED: Acetaminophen 325 MG TAB PO PRN (21:16)
[2018-12-21] MEDS ORDERED: hydrOXYzine 25 MG TAB PO PRN (21:16)
[2018-12-21] MEDS ORDERED: Budesonide 0.5 MG/2 ML NEB NEB SCH (22:45)
[2018-12-21] MEDS ORDERED: Famotidine 20 MG TAB PO SCH (22:45)
[2018-12-21] MEDS ORDERED: Vancomycin HCl 25 MG/ML Oral PO SCH (22:45)
[2018-12-21] MEDS ORDERED: busPIRone HCl 5 MG TAB PO SCH (22:45)
[2018-12-21] MEDS ORDERED: Apixaban 5 MG TAB PO SCH (22:45)
[2018-12-21] MEDS ORDERED: Carvedilol 25 MG TAB PO SCH (22:45)
[2018-12-21] MEDS ORDERED: Gabapentin 300 MG CAP PO SCH (22:45)
[2018-12-21] MEDS: HYDROcodone/Acetaminophen 10/325 mg Tablet PO PRN (22:53)
[2018-12-22] MEDS: Vancomycin HCl 25 MG/ML Oral PO SCH ×5 (01:53→20:37)
[2018-12-22 06:00] LABS: Anion Gap 15 mmol/L (10-20); BUN (Urea Nitrogen) 12 mg/dL (9.8-20.1); Calc. Creatinine Clearance 56 mL/min (70-130); Calcium 9.8 mg/dL (7.8-10.44); Carbon Dioxide 33 mmol/L (23-31); Chloride 92 mmol/L (98-107); Estimated GFR-MDRD Greater than 90; Glucose 100 mg/dL (83-110); Potassium 4.9 mmol/L (3.5-5.1); Sodium 135 mmol/L (136-145)
[2018-12-22 06:21] LABS: Hemoglobin 11.5 g/dL (12.0-16.0); Mean Corpuscular HGB CONC 31.2 g/dL (32.0-36.0); Mean Corpuscular Hemoglobin 37.6 pg (27.0-31.0); Mean Platelet Volume 8.1 fL (7.4-10.4); Platelet Count 179 thou/uL (130-400); RBC Distribution Width 15.7 % (11.5-14.5); Red Blood Cell (RBC) Count 3.05 mill/uL (4.20-5.40); White Blood Cell (WBC) Count 7.4 thou/uL (4.8-10.8)
[2018-12-22 06:22] LABS: Eosinophils 2 % (0-10); Giant Platelets SLIGHT; Lymphocytes 24 % (21-51); MDiff Complete? YES; Monocytes 17 % (0-10); Neutrophil 57 % (42-75)
[2018-12-22] MEDS: Budesonide 0.5 MG/2 ML NEB NEB SCH ×2 (09:29→20:35)
[2018-12-22] MEDS: Gabapentin 300 MG CAP PO SCH ×3 (09:30→20:36)
[2018-12-22] MEDS: Famotidine 20 MG TAB PO SCH ×2 (09:31→20:36)
[2018-12-22] MEDS: Carvedilol 6.25 MG TAB PO SCH ×2 (09:31→20:35)
[2018-12-22] MEDS: Lisinopril 20 MG TAB PO SCH (09:31)
[2018-12-22] MEDS: Digoxin 0.125 MG TAB PO SCH (09:31)
[2018-12-22] MEDS: Amlodipine 10 MG TAB PO SCH (09:32)
[2018-12-22] MEDS: busPIRone HCl 5 MG TAB PO SCH ×2 (09:32→20:35)
[2018-12-22] MEDS: Amiodarone 200 MG TAB PO SCH (09:32)
[2018-12-22] MEDS: Apixaban 5 MG TAB PO SCH ×2 (09:34→20:36)
[2018-12-22] MEDS: fentaNYL 50 mcg/hour Patch TD SCH (09:34)
[2018-12-22] MEDS: HYDROcodone/Acetaminophen 10/325 mg Tablet PO PRN ×2 (13:51→19:06)
[2018-12-23] MEDS: fentaNYL 50 mcg/hour Patch TD SCH (03:45)
--- NOTE | 2018-12-23 07:24 | HP ---
CHIEF COMPLAINT: Clostridium difficile. HISTORY OF PRESENT ILLNESS: The patient is a 73-year-old female, who has a past medical history of atrial fibrillation, hypertension, COPD, and chronic pain, who has had a prolonged hospitalization at [facility] in [place], where she was noted to have Clostridium difficile. She is currently on treatment with p.o. vancomycin. During the course of the hospitalization, she initially went to the ICU, but she was slightly hypotensive and required pressors. Multiple specialists were consulted on her state including Pulmonology, Nephrology, Cardiology, Cardiovascular Surgery, Hand Surgery, Gastroenterology, and Infectious Disease. The patient has been on p.o. vancomycin for 30 days and is feeling much better. She does notes that she has chronic abdominal pain anytime somebody presses on her belly, this has been present for years. The most severe pain and cramping that she had during the hospital stay has resolved. She notes that she routinely has diarrhea once every 2 to 3 days and she is back to her baseline at this point. She also has exacerbation for chronic pain during the hospital stay and Anesthesia was consulted and she is now on 50 mcg fentanyl patch with [place] for break-through and this seems to be working for her. At home, she ambulates for just a little bit, but states she does not want much because her back hurts. She states she uses cane when walking and she would like to get back to this. PAST MEDICAL HISTORY: 1. Atrial fibrillation. 2. GERD. 3. Hypertension. 4. Chronic obstructive pulmonary disease. 5. Chronic pain. PAST SURGICAL HISTORY: 1. Bilateral cataract surgery. 2. Bilateral trigger finger repair. 3. C section. 4. Hysterectomy. 5. Neck surgery. 6. Pacemaker placement. SOCIAL HISTORY: The patient denies alcohol or drug use, but is still a smoker and states she smokes 3 to 4 cigarettes a day. ALLERGIES: 1. ALPRAZOLAM. 2. AZITHROMYCIN. 3. DOXYCYCLINE. 4. KETOROLAC. 5. PENICILLIN. 6. TRAMADOL. MEDICATIONS: 1. [place] 10/325 1 p.o. q.4 hours p.r.n. pain. 2. DuoNebs q.4 hours p.r.n. shortness of breath. 3. Amiodarone 200 mg p.o. daily. 4. Amlodipine 10 mg p.o. daily. 5. Eliquis 5 mg p.o. b.i.d. 6. Budesonide nebs b.i.d. 7. BuSpar 5 mg p.o. b.i.d. 8. Tums q.4 hours p.r.n. 9. Carvedilol 12.5 mg p.o. b.i.d. 10. Digoxin 0.125 mg p.o. q.a.m. 11. Famotidine 20 mg p.o. b.i.d. 12. Fentanyl 50 mcg transdermal patch q.3 Days. 13. Gabapentin 600 mg p.o. t.i.d. 14. Lisinopril 20 mg p.o. daily. 15. Reglan 5 mg p.o. q.6 hours p.r.n. nausea and vomiting. 16. Protonix 40 mg p.o. daily. 17. Vancomycin 250 mg p.o. q.i.d. for 2 weeks. REVIEW OF SYSTEMS: GENERAL: Negative of fever or chills. EYES: Negative for visual changes or eye pain. HEENT: Negative of short sight or rhinorrhea. CARDIOVASCULAR: Negative for chest pain or palpitations. LUNGS: Negative for cough, wheezing, or shortness of ABDOMEN: Positive for chronic abdominal tenderness and occasional diarrhea. GENITOURINARY: Negative for dysuria or polyuria. MUSCULOSKELETAL: Positive for chronic back pain and generalized weakness. SKIN: Negative for rashes or lesions. PSYCHIATRIC: Negative of anxiety or depression. NEUROLOGIC: Negative for syncope, seizures, numbness, or tingling. PHYSICAL EXAMINATION: VITAL SIGNS: Temperature 96.4, pulse 66, respiratory rate 18, O2 sat 92% om room air, blood pressure 94/50. GENERAL: The patient is awake, alert, and oriented, in no acute distress. EYES: Pupils are equal, round, and reactive to light and accommodation. Extraocular muscles intact. HEENT: Oropharynx and nasopharynx without erythema or exudate. NECK: Supple without lymphadenopathy, thyromegaly, or bruits. CARDIOVASCULAR: Regular rate and rhythm without murmurs. LUNGS: Clear to auscultation bilaterally without wheezing or rhonchi. ABDOMEN: Soft, mildly tender to palpation, nondistended. Bowel sounds present. EXTREMITIES: The patient has full range of motion in all extremities. Muscle strength is 5/5. PSYCHIATRIC: The patient is placed in appropriate mood and affect. LABORATORY DATA: CBC; WBC is 7.4, hemoglobin 11.5, hematocrit 36.8, platelet count 179. BMP; sodium 135, potassium 4.9, chloride 92, bicarb 33, BUN 12, creatinine 0.56, glucose 100, calcium 9.8. ASSESSMENT AND PLAN: 1. Clostridium difficile colitis. The patient will continue oral vancomycin for a total of 14 days. 2. Generalized deconditioning. PT and OT have been consulted to help strengthening the patient, so that she can return home. 3. Atrial fibrillation. The patient currently has a pacemaker and rhythm appears to be regular. We will continue medication including digoxin, amiodarone, and carvedilol, and Eliquis for anticoagulation. 4. Hypertension. We will monitor blood pressure as this morning she was mildly hypotensive, but the patient is asymptomatic. 5. Chronic obstructive pulmonary disease. Continue scheduled nebs and p.r.n. albuterol. 6. Chronic pain. We will continue the patient fentanyl patch with [place] for break-through pain. Job ID: [id number] [facility]
[2018-12-23] MEDS: Vancomycin HCl 25 MG/ML Oral PO SCH ×4 (09:04→20:11)
[2018-12-23] MEDS: Gabapentin 300 MG CAP PO SCH ×3 (09:19→20:11)
[2018-12-23] MEDS: Amlodipine 10 MG TAB PO SCH (09:20)
[2018-12-23] MEDS: Carvedilol 6.25 MG TAB PO SCH ×2 (09:21→20:10)
[2018-12-23] MEDS: busPIRone HCl 5 MG TAB PO SCH ×2 (09:21→20:10)
[2018-12-23] MEDS: Apixaban 5 MG TAB PO SCH ×2 (09:21→20:11)
[2018-12-23] MEDS: Lisinopril 20 MG TAB PO SCH (09:22)
[2018-12-23] MEDS: Amiodarone 200 MG TAB PO SCH (09:22)
[2018-12-23] MEDS: Digoxin 0.125 MG TAB PO SCH (09:22)
[2018-12-23] MEDS: Famotidine 20 MG TAB PO SCH ×2 (09:23→20:11)
[2018-12-23] MEDS: HYDROcodone/Acetaminophen 10/325 mg Tablet PO PRN ×2 (10:00→18:16)
[2018-12-23] MEDS: Budesonide 0.5 MG/2 ML NEB NEB SCH ×2 (11:21→20:10)
--- NOTE | 2018-12-23 12:04 | PRG ---
DATE OF SERVICE: 12/23/2018 SUBJECTIVE: The patient is a 73-year-old female with C diff colitis, who is at [facility] for rehabilitation. The patient has chronic back and leg pain, and has been struggling with this for a number of years. I was able to see her while Physical Therapy was getting up and walking in the hallway. She was able to go a few feet, but then began to have pain and needed to sit down and rest in a wheelchair for a few minutes, and then she was able to stand up and walk back to her bed. She does have a fentanyl patch and per nursing, the patch fell off last night and a new one was placed around midnight. The patient does note that her appetite is improving and that she ate all of her breakfast, and her stools were becoming more firm. OBJECTIVE: VITAL SIGNS: Temperature 97.3, pulse 67, blood pressure 111/58, respirations 18, O2 saturation 93% on room air. GENERAL: The patient is awake, alert, oriented, and noted to be in mild distress secondary to pain with ambulation. CARDIOVASCULAR: Regular rate and rhythm without murmurs, gallops, or rubs. LUNGS: Clear to auscultation bilaterally without wheezing or rhonchi. ABDOMEN: Soft. Bowel sounds are present with mild tenderness, which the patient states this is her baseline. MUSCULOSKELETAL: The patient has some tenderness along the midline for lower lumbar spine and in the right and left paraspinal muscles. PSYCHIATRIC: The patient shows an appropriate mood and affect. ASSESSMENT AND PLAN: 1. Clostridium difficile colitis: We will continue p.o. vancomycin for a total of 14 days. 2. Generalized deconditioning: Continue therapy as the patient's goal is to try to be ambulatory enough that she can walk out into her yard at home, which she admits that she has been able to do in about 2 years. 3. Chronic back pain: The patient has a fentanyl patch in, [place] for breakthrough pain, as well as Tylenol. She is not wanting to take the extra Tylenol. We are mindful to stay under 3000 mg of Tylenol in a 24-hour. Nursing is going to administer a [place] tablet to try to help with this pain. 4. Peripheral arterial disease: This is likely the cause of the patient's leg pain, but multiple specialists were consulted at the [facility] and she is not a surgical candidate. 5. Chronic obstructive pulmonary disease: Breathing is stable. We will continue nebs. Job ID: [id number]
[2018-12-24] MEDS: HYDROcodone/Acetaminophen 10/325 mg Tablet PO PRN ×3 (05:18→15:29)
[2018-12-24] MEDS: Amiodarone 200 MG TAB PO SCH (09:08)
[2018-12-24] MEDS: Amlodipine 10 MG TAB PO SCH (09:08)
[2018-12-24] MEDS: busPIRone HCl 5 MG TAB PO SCH (09:09)
[2018-12-24] MEDS: Apixaban 5 MG TAB PO SCH (09:09)
[2018-12-24] MEDS: Budesonide 0.5 MG/2 ML NEB NEB SCH (09:09)
[2018-12-24] MEDS: Famotidine 20 MG TAB PO SCH (09:10)
[2018-12-24] MEDS: Digoxin 0.125 MG TAB PO SCH (09:10)
[2018-12-24] MEDS: Carvedilol 6.25 MG TAB PO SCH (09:10)
[2018-12-24] MEDS: Vancomycin HCl 25 MG/ML Oral PO SCH ×3 (09:11→16:42)
[2018-12-24] MEDS: Gabapentin 300 MG CAP PO SCH ×2 (09:11→14:54)
[2018-12-24] MEDS: Lisinopril 20 MG TAB PO SCH (09:11)
[2018-12-24] MEDS: Ondansetron ODT 4 MG TAB PO PRN (13:12)
--- NOTE | 2018-12-24 16:14 | PRG ---
DATE OF SERVICE: 12/24/2018 SUBJECTIVE: The patient is a 73-year-old female with C diff colitis, who is at [facility] for rehabilitation following a prolonged hospital stay. The patient had some nausea earlier today and received Zofran and she states she is feeling better now. She was able to eat breakfast and she has been drinking well. The patient complains of chronic lower back pain, but states overall, she is improving and feels much better than she did before her multiple hospital days began. OBJECTIVE: VITAL SIGNS: Temperature 96.0, however, this was taken right after she was drinking, pulse 65, blood pressure 125/59, respiration rate 16, and O2 saturations 95% on room air. GENERAL: The patient is awake, alert, and oriented and in no acute distress. CARDIOVASCULAR: Regularly rate and rhythm without murmurs, gallops, or rubs. LUNGS: Clear to auscultation bilaterally without wheezing or rhonchi. ABDOMEN: Soft. Mildly tender to palpation, which is chronic per the patient without guarding or rebound tenderness. Bowel sounds are present. EXTREMITIES: There is no clubbing, cyanosis, or edema. MUSCULOSKELETAL: The patient has some tenderness to her lower lumbar spine and paraspinal muscles, but the patient was visualized walking from the bathroom to the bed without difficulty. PSYCHIATRIC: The patient shows an appropriate mood and affect. ASSESSMENT AND PLAN: 1. Clostridium difficile colitis: We will continue p.o. vancomycin for a total of 14 days. The patient is no longer having diarrhea. 2. Generalized deconditioning: The patient is ambulating independently in her room and is able to dress herself. We will likely plan for discharge in the upcoming week. 3. Chronic back pain: We will continue the fentanyl patch and [place] for breakthrough pain as well as Tylenol. The patient notes her back pain is controlled as it usually is with her current pain regimen. 4. Nausea: We discussed that the nausea may be a side effect from all of the pain medications that she is on. Her nausea has improved with Zofran, and we will continue this as needed. 5. Peripheral arterial disease: We will continue pain medications. The patient is not a surgical candidate after revascularization. We aware that this is likely causing some of her leg pain as well. 6. Chronic obstructive pulmonary disease: O2 saturations are stable. We will continue current management. Job ID: [id number]
[2018-12-25] MEDS: Famotidine 20 MG TAB PO SCH ×3 (00:41→20:29)
[2018-12-25] MEDS: Vancomycin HCl 25 MG/ML Oral PO SCH ×5 (00:41→20:29)
[2018-12-25] MEDS: busPIRone HCl 5 MG TAB PO SCH ×3 (00:41→20:29)
[2018-12-25] MEDS: Apixaban 5 MG TAB PO SCH ×3 (00:41→20:28)
[2018-12-25] MEDS: Gabapentin 300 MG CAP PO SCH ×4 (00:41→20:29)
[2018-12-25] MEDS: Budesonide 0.5 MG/2 ML NEB NEB SCH ×3 (00:41→20:28)
[2018-12-25] MEDS: Carvedilol 6.25 MG TAB PO SCH ×3 (00:41→20:29)
[2018-12-25] MEDS: Amiodarone 200 MG TAB PO SCH (08:49)
[2018-12-25] MEDS: Amlodipine 10 MG TAB PO SCH (08:49)
[2018-12-25] MEDS: Digoxin 0.125 MG TAB PO SCH (08:50)
[2018-12-25] MEDS: Lisinopril 20 MG TAB PO SCH (08:50)
[2018-12-25] MEDS: HYDROcodone/Acetaminophen 10/325 mg Tablet PO PRN ×3 (08:51→16:55)
[2018-12-25] MEDS: fentaNYL 50 mcg/hour Patch TD SCH (12:13)
[2018-12-26] MEDS: Carvedilol 6.25 MG TAB PO SCH ×2 (08:32→20:13)
[2018-12-26] MEDS: Digoxin 0.125 MG TAB PO SCH (08:33)
[2018-12-26] MEDS: Amiodarone 200 MG TAB PO SCH (08:33)
[2018-12-26] MEDS: Gabapentin 300 MG CAP PO SCH ×3 (08:33→20:13)
[2018-12-26] MEDS: Famotidine 20 MG TAB PO SCH ×2 (08:33→20:13)
[2018-12-26] MEDS: Lisinopril 20 MG TAB PO SCH (08:33)
[2018-12-26] MEDS: Apixaban 5 MG TAB PO SCH ×2 (08:33→20:12)
[2018-12-26] MEDS: Budesonide 0.5 MG/2 ML NEB NEB SCH ×2 (08:33→20:12)
[2018-12-26] MEDS: busPIRone HCl 5 MG TAB PO SCH ×2 (08:33→20:12)
[2018-12-26] MEDS: Amlodipine 10 MG TAB PO SCH (08:33)
[2018-12-26] MEDS: Vancomycin HCl 25 MG/ML Oral PO SCH ×4 (08:34→20:14)
[2018-12-26] MEDS: HYDROcodone/Acetaminophen 10/325 mg Tablet PO PRN ×3 (08:40→20:15)
[2018-12-26] MEDS: Ondansetron ODT 4 MG TAB PO PRN (11:05)
--- NOTE | 2018-12-26 15:21 | PRG ---
DATE OF SERVICE: 12/26/2018 SUBJECTIVE: The patient is a 73-year-old female with history of C diff colitis, on p.o. vancomycin, who is at [place] for rehabilitation. This morning, the patient began having episode of nausea, but after treatment with Zofran, was feeling much better. She was unable to work with Physical Therapy this morning because she felt so poorly, but when I came in the room, she was up walking around in her room and said that she felt much better and would try physical therapy this afternoon. She has been eating well and states her pain is at its baseline. OBJECTIVE: VITAL SIGNS: Temperature 96.4, pulse 70, respiration rate 18, O2 sat 93% on room air, blood pressure 129/59. GENERAL: The patient is awake, alert, and oriented, in no acute distress. CARDIOVASCULAR: Regular rate and rhythm without murmurs, gallops, or rubs. LUNGS: Clear to auscultation bilaterally without wheezing or rhonchi. ABDOMEN: Soft, mildly tender to palpation diffusely with positive bowel sounds. Abdominal exam is at its baseline. EXTREMITIES: There is clubbing, cyanosis, or edema. PSYCHIATRIC: The patient is placed in appropriate mood and affect. ASSESSMENT AND PLAN: 1. Clostridium difficile colitis: The patient is continuing p.o. vancomycin for a total of 14 days. 2. Generalized deconditioning: She will continue physical therapy and as the patient was able to dress herself, get up and move about the room independently, we anticipate discharge on 12/28/2018. 3. Nausea: Zofran improves her nausea, this has happened at least twice, so she has been here; just in the morning, she becomes nauseated and then feels much better as the day progresses. We will continue to monitor this. 4. Chronic back pain: Continue her current pain medicine regimen, fentanyl patch and [place] for breakthrough pain. 5. Peripheral arterial disease: We continue pain medications. The patient is not a surgical candidate and needs medical management. 6. Chronic obstructive pulmonary disease: O2 sats are stable. Job ID: [id number]
[2018-12-26] MEDS ORDERED: fentaNYL 50 mcg/hour Patch TD SCH (21:15)
[2018-12-27] MEDS: Ondansetron ODT 4 MG TAB PO PRN (02:19)
[2018-12-27] MEDS: HYDROcodone/Acetaminophen 10/325 mg Tablet PO PRN ×4 (02:19→19:22)
[2018-12-27 05:40] LABS: Band 2 % (5-11); Eosinophils 1 % (0-10); Hemoglobin 10.5 g/dL (12.0-16.0); Lymphocytes 16 % (21-51); MDiff Complete? YES; Macrocytosis MODERATE=16-30 cells (100X) (0-5/hpf); Mean Corpuscular HGB CONC 31.2 g/dL (32.0-36.0); Mean Corpuscular Hemoglobin 37.8 pg (27.0-31.0); Monocytes 12 % (0-10); Neutrophil 68 % (42-75); Platelet Count 302 thou/uL (130-400); Platelet Morphology Comment Appears Adequate; RBC Distribution Width 15.6 % (11.5-14.5); Red Blood Cell (RBC) Count 2.77 mill/uL (4.20-5.40); White Blood Cell (WBC) Count 8.4 thou/uL (4.8-10.8)
[2018-12-27 05:48] LABS: Anion Gap 16 mmol/L (10-20); BUN (Urea Nitrogen) 25 mg/dL (9.8-20.1); Calc. Creatinine Clearance 47 mL/min (70-130); Calcium 10.1 mg/dL (7.8-10.44); Carbon Dioxide 31 mmol/L (23-31); Chloride 91 mmol/L (98-107); Estimated GFR-MDRD 86; Glucose 89 mg/dL (83-110); Potassium 5.2 mmol/L (3.5-5.1); Sodium 133 mmol/L (136-145)
[2018-12-27] MEDS: Carvedilol 6.25 MG TAB PO SCH ×2 (09:16→20:02)
[2018-12-27] MEDS: Budesonide 0.5 MG/2 ML NEB NEB SCH ×2 (09:16→20:01)
[2018-12-27] MEDS: Amlodipine 10 MG TAB PO SCH (09:16)
[2018-12-27] MEDS: Apixaban 5 MG TAB PO SCH ×2 (09:16→20:01)
[2018-12-27] MEDS: Digoxin 0.125 MG TAB PO SCH (09:17)
[2018-12-27] MEDS: Amiodarone 200 MG TAB PO SCH (09:17)
[2018-12-27] MEDS: Gabapentin 300 MG CAP PO SCH ×3 (09:17→20:03)
[2018-12-27] MEDS: Famotidine 20 MG TAB PO SCH ×2 (09:17→20:02)
[2018-12-27] MEDS: busPIRone HCl 5 MG TAB PO SCH ×2 (09:17→20:01)
[2018-12-27] MEDS: Vancomycin HCl 25 MG/ML Oral PO SCH ×4 (09:18→20:03)
--- NOTE | 2018-12-27 09:26 | PRG ---
DATE OF SERVICE: 12/27/2018 SUBJECTIVE: The patient is a 73-year-old female with a history of C diff colitis, who at [facility] for rehabilitation. Nursing states that the patient was a little bit confused overnight, but this morning, she is awake, alert, and oriented, and denies complaints. She has been up, ambulating in her room without difficulty and plans to go home tomorrow. OBJECTIVE: VITAL SIGNS: Temperature 96.3, pulse 62, respiratory rate 16, O2 saturation 90% on room air, and blood pressure 114/58. GENERAL: The patient is awake, alert, and oriented, and in no acute distress. CARDIOVASCULAR: Regular rate and rhythm without murmurs, gallops, or rubs. LUNGS: Clear to auscultation bilaterally without wheezing or rhonchi. ABDOMEN: Soft, nontender, and nondistended with bowel sounds present. EXTREMITIES: There is no clubbing, cyanosis, or edema. PSYCHIATRIC: The patient displays an appropriate mood and affect. LABORATORY DATA: 1. WBCs 8.4, hemoglobin 10.5, hematocrit 33.5, platelet count 302. 2. BMP: Sodium 133, potassium 5.2, chloride 91, bicarb 31, BUN 25, creatinine 0.67, glucose 89, calcium 10.1. ASSESSMENT AND PLAN: 1. Clostridium difficile colitis: The patient is doing well with her p.o. vancomycin. We will continue this for a total of 14 days. She has had no more diarrhea. 2. Generalized deconditioning: The patient has done well with therapy. She will be able to transition home tomorrow. 3. Hyperkalemia: The patient notes that she has had episodes of hyperkalemia in the past and her lisinopril had to be stopped. I will stop her lisinopril today as I think that is contributing to her potassium and just recheck in the morning. 4. Chronic obstructive pulmonary disease: O2 saturation has been stable in the low 90s. 5. Chronic back pain: Continue current pain medicine regimen. 6. Peripheral arterial disease: Continue pain management. The patient is not a surgical candidate. Job ID: [id number]
[2018-12-28] MEDS: HYDROcodone/Acetaminophen 10/325 mg Tablet PO PRN ×4 (05:32→20:19)
[2018-12-28 05:57] LABS: Anion Gap 18 mmol/L (10-20); BUN (Urea Nitrogen) 25 mg/dL (9.8-20.1); Calc. Creatinine Clearance 41 mL/min (70-130); Calcium 10.7 mg/dL (7.8-10.44); Carbon Dioxide 31 mmol/L (23-31); Chloride 92 mmol/L (98-107); Estimated GFR-MDRD 73; Glucose 80 mg/dL (83-110); Potassium 5.8 mmol/L (3.5-5.1); Sodium 135 mmol/L (136-145)
[2018-12-28 07:11] LABS: Potassium 5.9 mmol/L (3.5-5.1)
[2018-12-28] MEDS: Amiodarone 200 MG TAB PO SCH (09:04)
[2018-12-28] MEDS: Amlodipine 10 MG TAB PO SCH (09:04)
[2018-12-28] MEDS: Budesonide 0.5 MG/2 ML NEB NEB SCH ×2 (09:05→20:17)
[2018-12-28] MEDS: Apixaban 5 MG TAB PO SCH ×2 (09:05→20:17)
[2018-12-28] MEDS: Carvedilol 6.25 MG TAB PO SCH ×2 (09:06→20:17)
[2018-12-28] MEDS: Famotidine 20 MG TAB PO SCH ×2 (09:06→20:18)
[2018-12-28] MEDS: Digoxin 0.125 MG TAB PO SCH (09:06)
[2018-12-28] MEDS: busPIRone HCl 5 MG TAB PO SCH ×2 (09:06→20:17)
[2018-12-28] MEDS: Vancomycin HCl 25 MG/ML Oral PO SCH ×4 (09:07→20:18)
[2018-12-28] MEDS: Gabapentin 300 MG CAP PO SCH ×3 (09:07→20:18)
--- NOTE | 2018-12-28 14:20 | PRG ---
DATE OF SERVICE: 12/28/2018 SUBJECTIVE: The patient is a 73-year-old female with C diff colitis, who is at [place] for rehabilitation. Overnight, the patient's labs returned with a potassium of 5.8 initially and repeat of 5.9. The patient is asymptomatic and was hoping to go home today. OBJECTIVE: VITAL SIGNS: Temperature 95.4, pulse 72, respiratory rate 18, O2 saturations 91% on room air, and blood pressure 140/61. GENERAL: The patient is awake, alert, and oriented, and in no acute distress. CARDIOVASCULAR: Regular rate and rhythm without murmurs, gallops, or rubs. LUNGS: Clear to auscultation bilaterally without wheezing or rhonchi. ABDOMEN: Soft, nontender, and nondistended with bowel sounds present. EXTREMITIES: There is no clubbing, cyanosis, or edema. LABORATORY DATA: BMP: Sodium 135, potassium 5.8, chloride 92, bicarbonate 31, BUN 25, creatinine 0.77, glucose 80, and calcium 10.7. ASSESSMENT AND PLAN: 1. Clostridium Difficile colitis. The patient has received 14-day course of p.o. vancomycin. 2. Hyperkalemia. The patient has been given 30 g of Kayexalate this morning and we will repeat her potassium later this evening. I am going to keep her for observation today. The patient has had no palpitations and the cardiac exam is normal. 3. Chronic obstructive pulmonary disease: O2 saturations have been in low 90s and this is the patient's baseline. We will continue her neb treatments. 4. Chronic back pain: continue fentanyl and prn norco. 5. Peripheral arterial disease: Continue pain management: The patient is not a surgical candidate. Job ID: [id number] [facility]
[2018-12-28 20:04] LABS: Anion Gap 15 mmol/L (10-20); BUN (Urea Nitrogen) 20 mg/dL (9.8-20.1); Calc. Creatinine Clearance 43 mL/min (70-130); Calcium 9.7 mg/dL (7.8-10.44); Carbon Dioxide 30 mmol/L (23-31); Chloride 94 mmol/L (98-107); Estimated GFR-MDRD 78; Glucose 105 mg/dL (83-110); Potassium 4.4 mmol/L (3.5-5.1); Sodium 135 mmol/L (136-145)
[2018-12-29] MEDS: HYDROcodone/Acetaminophen 10/325 mg Tablet PO PRN ×2 (00:54→08:28)
[2018-12-29 07:41] VITALS: TEMP 96.4
[2018-12-29] MEDS: Amlodipine 10 MG TAB PO SCH (08:23)
[2018-12-29] MEDS: Amiodarone 200 MG TAB PO SCH (08:23)
[2018-12-29] MEDS: Carvedilol 6.25 MG TAB PO SCH (08:24)
[2018-12-29] MEDS: Apixaban 5 MG TAB PO SCH (08:24)
[2018-12-29] MEDS: busPIRone HCl 5 MG TAB PO SCH (08:24)
[2018-12-29] MEDS: Budesonide 0.5 MG/2 ML NEB NEB SCH (08:24)
[2018-12-29] MEDS: Vancomycin HCl 25 MG/ML Oral PO SCH (08:25)
[2018-12-29] MEDS: Gabapentin 300 MG CAP PO SCH (08:25)
[2018-12-29] MEDS: Famotidine 20 MG TAB PO SCH (08:25)
[2018-12-29] MEDS: Digoxin 0.125 MG TAB PO SCH (08:25)
[2018-12-29 08:29] VITALS: BP 158/65
--- NOTE | 2018-12-29 17:46 | DIS ---
DATE OF ADMISSION: 12/21/2018 DATE OF DISCHARGE: 12/29/2018 DISCHARGE DIAGNOSES: 1. Clostridium difficile colitis. 2. Generalized deconditioning. 3. Chronic obstructive pulmonary disease. 4. Chronic back pain. 5. Peripheral arterial disease. HOSPITAL COURSE: The patient is a 73-year-old female, who had an extended hospitalization at [facility], where she was admitted with sepsis initially to the ICU. She was eventually diagnosed with C. diff colitis and after beginning treatment with oral vancomycin, was transitioned to [place] for rehabilitation. The patient has been working with Physical Therapy and is up and ambulating independently in her room, can dress herself and perform all other tasks needed on a daily basis independently. During the course of the hospitalization at [place], the patient was noted to be hyperkalemic and received a dose of Kayexalate yesterday, and her potassium has improved to 4.4 from 5.9. The patient also has chronic lower back pain and her pain medication regimen was adjusted at [facility] to include a fentanyl patch with [place] for breakthrough pain. We continued this here and the patient has been doing well on the current dosing. The patient will be discharged home today and [facility] has been set up for the patient. DISCHARGE MEDICATIONS: 1. Tylenol 650 mg p.o. q.6 hours p.r.n. 2. [place] 10/325 one tab p.o. q.6 hours p.r.n. pain. 3. DuoNebs q.4 hours p.r.n. shortness of breath. 4. Amiodarone 200 mg p.o. daily. 5. Amlodipine 10 mg p.o. daily. 6. Eliquis 5 mg p.o. b.i.d. 7. Budesonide 0.5 mg nebs b.i.d. 8. BuSpar 5 mg p.o. b.i.d. 9. Carvedilol 12.5 mg p.o. b.i.d. 10. Digoxin 0.125 mg p.o. q.a.m. 11. Famotidine 20 mg p.o. b.i.d. 12. Fentanyl 50 mcg patch q.3 days. 13. Gabapentin 600 mg p.o. t.i.d. 14. Protonix 40 mg p.o. daily. 15. Vancomycin 250 mg p.o. 4 times daily until 01/05/2019. DISPOSITION: 1. The patient will be discharged home in stable condition. 2. [facility] has been set up for the patient with PT and prison. 3. The patient will follow up with myself within a week. Job ID: [id number]
== END 2018-12-29 10:25 | disposition home health service (06) | DRG 373 ==
LOC: NAV ACUTE 18:33
PROVIDERS: ADMIT Family Medicine; ATTEND Family Medicine
DX: A04.72 Enterocolitis due to Clostridium difficile, not specified as recurrent (principal); R53.81 Other malaise; I48.91 Unspecified atrial fibrillation; I10 Essential (primary) hypertension; J44.9 Chronic obstructive pulmonary disease, unspecified; G89.29 Other chronic pain; K21.9 Gastro-esophageal reflux disease without esophagitis; F17.210 Nicotine dependence, cigarettes, uncomplicated; I73.9 Peripheral vascular disease, unspecified; M54.5 Low back pain; E87.5 Hyperkalemia; Z95.0 Presence of cardiac pacemaker; Z98.41 Cataract extraction status, right eye; Z98.42 Cataract extraction status, left eye; Z90.710 Acquired absence of both cervix and uterus; Z98.890 Other specified postprocedural states; Z88.1 Allergy status to other antibiotic agents; Z88.0 Allergy status to penicillin; Z88.5 Allergy status to narcotic agent; Z79.01 Long term (current) use of anticoagulants
CPT/HCPCS: 36415; 80048; 85025; J7626; Q0162

== ENCOUNTER 2019-02-06 19:30 | Emergency (ER) | payer MEDICARE ==
[2019-02-06] MEDS ORDERED: Ondansetron ODT 4 MG TAB ONE (19:55)
[2019-02-06] MEDS ORDERED: Morphine 4 MG/ML VIAL ONE (20:28)
[2019-02-06] MEDS ORDERED: Sodium Chloride 0.9% 1,000 ML ONE ×2 (20:29→21:25)
[2019-02-06 20:34] LABS: Hemoglobin 14.1 g/dL (12.0-16.0); Lymphocytes 25 % (21-51); MDiff Complete? YES; Macrocytosis MARKED = >30 cells (100X) (0-5/hpf); Mean Corpuscular HGB CONC 30.9 g/dL (32.0-36.0); Mean Corpuscular Hemoglobin 35.3 pg (27.0-31.0); Monocytes 8 % (0-10); Neutrophil 66 % (42-75); Platelet Count 257 thou/uL (130-400); Polychromasia MODERATE = 3-4 cells (100X) (0-2/hpf); RBC Distribution Width 16.5 % (11.5-14.5); Reactive Lymphocytes 1 % (0-10); Red Blood Cell (RBC) Count 4.01 mill/uL (4.20-5.40); Target Cells MODERATE= 6-15 cells (100X) (0-1/hpf); White Blood Cell (WBC) Count 5.1 thou/uL (4.8-10.8)
[2019-02-06 20:36] LABS: ALT (SGPT) 11 U/L (8-55); AST (SGOT) 15 U/L (5-34); Albumin 3.3 g/dL (3.4-4.8); Alkaline Phosphatase 81 U/L (40-150); Anion Gap 17 mmol/L (10-20); BUN (Urea Nitrogen) 12 mg/dL (9.8-20.1); Bilirubin, Total 0.5 mg/dL (0.2-1.2); Calc. Creatinine Clearance 0 mL/min (70-130); Calcium 9.3 mg/dL (7.8-10.44); Carbon Dioxide 22 mmol/L (23-31); Chloride 99 mmol/L (98-107); Estimated GFR-MDRD 89; Globulin 3.2 g/dL (2.4-3.5); Glucose 100 mg/dL (83-110); Potassium 4.2 mmol/L (3.5-5.1); Protein, Total 6.5 g/dL (6.0-8.3); Sodium 134 mmol/L (136-145)
[2019-02-06 20:50] LABS: Bilirubin Negative (Negative); Blood, Urine Negative (Negative); Glucose, Urine (Dipstick) Negative (Negative); Leukocyte Trace (Negative); Nitrite Positive (Negative); Protein, Urine (Dipstick) Negative (Neg-Trace); Urobilinogen 0.2 mg/dL (0.2-1.0)
[2019-02-06 21:05] LABS: Clarity SL HAZY (Clear)
[2019-02-06 21:07] LABS: Bacteria/HPF 4+ HPF (None Seen); Squamous Epithelial 0-3 HPF (0-3)
[2019-02-06] MEDS ORDERED: cefTRIAXone\\ROCEPHIN 1 GM VIAL ONE (21:21)
[2019-02-06] MEDS ORDERED: Acetaminophen 325 MG TAB ONE (21:34)
--- NOTE | 2019-02-06 21:40 | RAD ---
EXAM: PORTABLE SEMIUPRIGHT CHEST ONE VIEW: History: Fever. Comparison: 12-13-18 FINDINGS: Left ICD. Prominent biapical pleural thickening with some linear and reticular nodular scarring noted bilaterally with some upper lobe volume loss. Minimal cardiomegaly. Bony demineralization. IMPRESSION: Stable hyperinflation and chronic lung changes with extensive biapical pleural thickening and upper l alexandrea volume loss. Stable cardiomegaly. Stable atherosclerosis. No significant new process. No evidence for pneumonia. POS: [facility]
== END 2019-02-06 22:00 | disposition short-term general hospital (02) ==
LOC: NAV ERS 19:30
DX: E86.0 Dehydration (principal); N39.0 Urinary tract infection, site not specified; I48.91 Unspecified atrial fibrillation; I10 Essential (primary) hypertension; J44.9 Chronic obstructive pulmonary disease, unspecified; F41.9 Anxiety disorder, unspecified; F17.210 Nicotine dependence, cigarettes, uncomplicated; Z79.899 Other long term (current) drug therapy; Z79.82 Long term (current) use of aspirin
CPT/HCPCS: 36416; 51701; 71045; 80053; 81003; 81015; 83605; 84484; 85025; 87077; 87086; 87186; 87804; 93005; 96361; 96365; 96375; J0696; J2270; J7050; Q0162

== ENCOUNTER 2019-03-13 10:24 | Emergency (ER) | payer MEDICARE ==
[2019-03-13] MEDS ORDERED: methylPREDNISolone Sod Succ/PF 125 MG/2 ML VIAL ONE (11:09)
[2019-03-13] MEDS ORDERED: Albuterol Sulfate 2.5 mg/0.5 ml Neb ONE (11:11)
[2019-03-13 11:36] LABS: ALT (SGPT) 10 U/L (8-55); AST (SGOT) 19 U/L (5-34); Albumin 3.3 g/dL (3.4-4.8); Alkaline Phosphatase 64 U/L (40-150); Anion Gap 17 mmol/L (10-20); BUN (Urea Nitrogen) 8 mg/dL (9.8-20.1); Bilirubin, Total 0.5 mg/dL (0.2-1.2); CK (CPK) 21 U/L (29-168); Calc. Creatinine Clearance 0 mL/min (70-130); Calcium 9.5 mg/dL (7.8-10.44); Carbon Dioxide 25 mmol/L (23-31); Chloride 97 mmol/L (98-107); Estimated GFR-MDRD Greater than 90; Globulin 3.4 g/dL (2.4-3.5); Glucose 113 mg/dL (83-110); Protein, Total 6.7 g/dL (6.0-8.3); Sodium 134 mmol/L (136-145)
[2019-03-13 11:37] LABS: #Lymphocytes 0.5 thou/uL (1.20-3.40); #Monocytes 0.5 thou/uL (0.11-0.59); #Neutrophils 10.8 thou/uL (1.40-6.50); %Basophils 0.2 % (0.0-1.0); %Lymphocytes 4.5 % (21.0-51.0); %Monocytes 4.4 % (0.0-10.0); %Neutrophils 90.8 % (42.0-75.0); Anisocytosis SLIGHT = 6-15 cells (100X) (0-5/hpf); Hemoglobin 12.1 g/dL (12.0-16.0); MDiff Complete? YES; Macrocytosis SLIGHT = 6-15 cells (100X) (0-5/hpf); Mean Corpuscular HGB CONC 30.1 g/dL (32.0-36.0); Mean Corpuscular Hemoglobin 33.5 pg (27.0-31.0); Mean Platelet Volume 5.8 fL (7.4-10.4); Platelet Count 311 thou/uL (130-400); Platelet Morphology Comment Appears Adequate; RBC Distribution Width 17.6 % (11.5-14.5); Red Blood Cell (RBC) Count 3.62 mill/uL (4.20-5.40); White Blood Cell (WBC) Count 11.9 thou/uL (4.8-10.8)
--- NOTE | 2019-03-13 11:45 | RAD ---
CHEST 1 VIEW: Date: 03/13/19 INDICATION: Dyspnea with shortness of breath. COMPARISON: Prior exam dated 02/27/19. FINDINGS: Since the comparison examination, there is worsening pulmonary vascular congestion and bilateral raudel hilar and interstitial and air space opacities. There are worsening bilateral pleural effusions, left greater than right. There is prominent air space opacity within the left lower lobe. No acute osseou s abnormality is evident. Ununited right distal clavicle fracture is similar appearing. Multilead pac emaker is stable. IMPRESSION: 1. Worsening cardiomegaly, pulmonary vascular congestion, and perihilar opacities, suspicious for CH F. 2. Small bilateral pleural effusions, left greater than right. 3. Increased opacity in left lower lobe may reflect air space edema or pneumonia. Recommendation cor relation. POS: CET
[2019-03-13] MEDS ORDERED: Sodium Chloride 0.9% 100 ML ONE (13:12)
[2019-03-13] MEDS ORDERED: cefTRIAXone\\ROCEPHIN 1 GM VIAL ONE (13:12)
[2019-03-13] MEDS ORDERED: HYDROcodone/Acetaminophen 5/325 mg Tablet ONE (13:49)
== END 2019-03-13 16:57 | disposition short-term general hospital (02) ==
LOC: NAV ERS 10:24
DX: J44.0 Chronic obstructive pulmonary disease with (acute) lower respiratory infection (principal); I48.91 Unspecified atrial fibrillation; I10 Essential (primary) hypertension; F41.9 Anxiety disorder, unspecified; F17.210 Nicotine dependence, cigarettes, uncomplicated; Z79.891 Long term (current) use of opiate analgesic; Z79.899 Other long term (current) drug therapy; Z79.82 Long term (current) use of aspirin
CPT/HCPCS: 36415; 71045; 80053; 82550; 83605; 83880; 84484; 85025; 87040; 87149; 93005; 96365; 96375; J0696; J2930; J3490; J7611